=== PATIENT | female | born 1950 | race Caucasian/White ===

== ENCOUNTER 2017-11-03 12:05 | Inpatient (IN) ==
[2017-11-03] MEDS ORDERED: ONDANSETRON 4 MG/2 ML VIAL IV PRN (13:19)
[2017-11-03] MEDS ORDERED: ACETAMINOPHEN 325 MG TABLET PO PRN (13:19)
[2017-11-03 14:09] LABS: Basophils % 0.4 % (0.0-0.8); Hematocrit 36.5 VOL% (35.7-47.0); Hemoglobin 11.7 GM/DL (12.0-16.0); Immature Granulocytes % 0.5 %; Immature Granulocytes Absolute 0.04 #; Lymphocytes % 14.3 % (21.3-54.2); Mean Corpuscular HGB Conc 32.1 GM/DL (32-36); Mean Corpuscular Hemoglobin 31 PG (27-34); Mean Corpuscular Volume 95.3 FL (87-102); Mean Platelet Volume 10.9 FL (9.6-12.0); Monocytes # 0.6 10*3/uL (0.11-0.8); Monocytes % 8.8 % (1.7-12.7); Neutrophils # 5.5 10*3/uL (1.4-7.4); Platelet Count 301 T/CUMM (130-400); Red Blood Count 3.83 MC/CUMM (3.8-5.5); Red Cell Distribution Width 13.1 % (9.3-17.3); White Blood Count 7.3 T/CUMM (4-12)
[2017-11-03] MEDS: ALBUTEROL/IPRATROPIUM 3 ML NEB RESP TX SCH ×3 (14:15→23:59)
[2017-11-03 14:43] LABS: Albumin 3.9 G/DL (3.4-5.0); Bilirubin,Total 0.4 MG/DL (0.2-1.0); Calcium 9.3 MG/DL (8.5-10.1); Osmolality,Calculated 271.1 MOS/KG (273-304); Potassium 4.6 MMOL/L (3.5-5.1); Total Protein 7.6 G/DL (6.4-8.3)
[2017-11-03] MEDS: cefTRIAXone 1,000 MG in SYRINGE 1 EACH IV SCH (14:45)
[2017-11-03] MEDS: methylPREDNISolone SOD SUC 40 MG/1 ML VIAL IV SCH ×2 (14:45→21:31)
[2017-11-03] MEDS ORDERED: METHOCARBAMOL 500 MG TABLET PO PRN (15:41)
[2017-11-03] MEDS: guaiFENesin/DM ER 600-30 MG TABLET PO PRN (17:31)
[2017-11-03] MEDS: ENOXAPARIN 40 MG/0.4 ML SYRINGE SUBCUT SCH (21:34)
[2017-11-04] MEDS: ALBUTEROL/IPRATROPIUM 3 ML NEB RESP TX SCH ×5 (03:21→20:55)
[2017-11-04] MEDS: methylPREDNISolone SOD SUC 40 MG/1 ML VIAL IV SCH ×4 (05:00→20:27)
[2017-11-04] MEDS: LEVOTHYROXINE 25 MCG TABLET PO SCH (07:06)
[2017-11-04] MEDS: guaiFENesin/DM ER 600-30 MG TABLET PO PRN (08:58)
[2017-11-04] MEDS: LOSARTAN 50 MG TABLET PO SCH (08:58)
[2017-11-04] MEDS: PANTOPRAZOLE 40 MG TABLET PO SCH (08:58)
[2017-11-04] MEDS: amLODIPine 5 MG TABLET PO SCH (08:58)
[2017-11-04] MEDS: DULoxetine 30 MG CAPSULE PO SCH (08:58)
[2017-11-04 14:27] LABS: Apearance,Urine CLEAR (Clear); Bacteria,Urine Occasional /HPF (Few); Bilirubin,Urine Negative (Negative); Blood, Urine Negative (Negative); Glucose,Urine (UA) Negative (Negative); Hyaline Casts,Urine 7 /LPF (0-3); Ketones,Urine Negative (Negative); Mucus,Urine Occasional /LPF (Occasional); Nitrite,Urine Negative (Negative); Protein,Urine Negative; RBC,Urine <1 /HPF (0-4); Squamous Epithelial Cell,Urine Occasional /HPF (0-10); Urine Color Yellow (Yellow); Urine Specific Gravity 1.009 (1.001-1.035); Urine Urobilinogen < 2.0 EU/DL (0.2-1.0); WBC,Urine 1 /HPF (0-6)
[2017-11-04] MEDS: cefTRIAXone 1,000 MG in SYRINGE 1 EACH IV SCH (15:44)
[2017-11-04] MEDS: THEOPHYLLINE ER (24 HR) 200 MG CAPSULE PO SCH (16:38)
[2017-11-04] MEDS: ENOXAPARIN 40 MG/0.4 ML SYRINGE SUBCUT SCH (20:27)
[2017-11-05] MEDS: ALBUTEROL/IPRATROPIUM 3 ML NEB RESP TX SCH ×7 (01:13→23:19)
[2017-11-05] MEDS: methylPREDNISolone SOD SUC 40 MG/1 ML VIAL IV SCH ×4 (04:12→20:49)
[2017-11-05] MEDS: LEVOTHYROXINE 25 MCG TABLET PO SCH (06:35)
[2017-11-05] MEDS: LOSARTAN 50 MG TABLET PO SCH (09:47)
[2017-11-05] MEDS: DULoxetine 30 MG CAPSULE PO SCH (09:47)
[2017-11-05] MEDS: amLODIPine 5 MG TABLET PO SCH (09:47)
[2017-11-05] MEDS: THEOPHYLLINE ER (24 HR) 200 MG CAPSULE PO SCH ×2 (09:47→16:57)
[2017-11-05] MEDS: PANTOPRAZOLE 40 MG TABLET PO SCH (09:48)
[2017-11-05] MEDS: cefTRIAXone 1,000 MG in SYRINGE 1 EACH IV SCH (09:53)
[2017-11-05] MEDS: ENOXAPARIN 40 MG/0.4 ML SYRINGE SUBCUT SCH (20:52)
[2017-11-06 03:12] LABS: Basophils % 0.2 % (0.0-0.8); Hematocrit 36.1 VOL% (35.7-47.0); Hemoglobin 11.5 GM/DL (12.0-16.0); Immature Granulocytes % 3.4 %; Immature Granulocytes Absolute 0.55 #; Lymphocytes # 1.8 10*3/uL (1.4-4.0); Lymphocytes % 11.3 % (21.3-54.2); Mean Corpuscular HGB Conc 31.9 GM/DL (32-36); Mean Corpuscular Hemoglobin 31 PG (27-34); Mean Platelet Volume 11.1 FL (9.6-12.0); Monocytes # 0.8 10*3/uL (0.11-0.8); Monocytes % 4.7 % (1.7-12.7); NRBC # 0.02 10*3/uL; Neutrophils % 80.4 % (38.7-73.9); Platelet Count 376 T/CUMM (130-400); Red Blood Count 3.76 MC/CUMM (3.8-5.5); Red Cell Distribution Width 13.6 % (9.3-17.3); White Blood Count 16.2 T/CUMM (4-12)
[2017-11-06] MEDS: methylPREDNISolone SOD SUC 40 MG/1 ML VIAL IV SCH ×4 (03:17→21:44)
[2017-11-06] MEDS: ALBUTEROL/IPRATROPIUM 3 ML NEB RESP TX SCH ×5 (03:20→20:10)
[2017-11-06 03:37] LABS: Calcium 10.1 MG/DL (8.5-10.1); Osmolality,Calculated 283.5 MOS/KG (273-304); Potassium 4.8 MMOL/L (3.5-5.1)
[2017-11-06 05:12] LABS: Band Neutrophils 3 % (0-10); Lymphocytes 13 % (20-55); Promyelocytes 1 %; Segmented Neutrophils 80 % (50-85)
[2017-11-06 05:13] LABS: Giant Platelets Few; Platelet Estimate Normal
[2017-11-06 05:14] LABS: Total Cells Counted 100
[2017-11-06] MEDS: LEVOTHYROXINE 25 MCG TABLET PO SCH (06:12)
[2017-11-06] MEDS: THEOPHYLLINE ER (24 HR) 200 MG CAPSULE PO SCH ×2 (09:13→17:19)
[2017-11-06] MEDS: DULoxetine 30 MG CAPSULE PO SCH (09:14)
[2017-11-06] MEDS: LOSARTAN 50 MG TABLET PO SCH (09:14)
[2017-11-06] MEDS: PANTOPRAZOLE 40 MG TABLET PO SCH (09:15)
[2017-11-06] MEDS: amLODIPine 5 MG TABLET PO SCH (09:15)
[2017-11-06] MEDS: DOCUSATE SODIUM 100 MG CAPSULE PO PRN (09:17)
[2017-11-06] MEDS: cefTRIAXone 1,000 MG in SYRINGE 1 EACH IV SCH (09:18)
[2017-11-06] MEDS: ENOXAPARIN 40 MG/0.4 ML SYRINGE SUBCUT SCH (21:43)
[2017-11-06] MEDS: guaiFENesin/DM ER 600-30 MG TABLET PO PRN (21:51)
[2017-11-07] MEDS: ALBUTEROL/IPRATROPIUM 3 ML NEB RESP TX SCH ×6 (00:12→20:06)
[2017-11-07] MEDS: methylPREDNISolone SOD SUC 40 MG/1 ML VIAL IV SCH ×4 (04:12→22:10)
[2017-11-07] MEDS: LEVOTHYROXINE 25 MCG TABLET PO SCH (06:24)
[2017-11-07] MEDS: LOSARTAN 50 MG TABLET PO SCH (09:53)
[2017-11-07] MEDS: THEOPHYLLINE ER (24 HR) 200 MG CAPSULE PO SCH ×2 (09:53→17:15)
[2017-11-07] MEDS: DULoxetine 30 MG CAPSULE PO SCH (09:53)
[2017-11-07] MEDS: amLODIPine 5 MG TABLET PO SCH (09:54)
[2017-11-07] MEDS: cefTRIAXone 1,000 MG in SYRINGE 1 EACH IV SCH (09:55)
[2017-11-07] MEDS: PANTOPRAZOLE 40 MG TABLET PO SCH (09:55)
[2017-11-07] MEDS: LACTULOSE 20 GM/30 ML UDCUP PO PRN (14:53)
[2017-11-07] MEDS: ENOXAPARIN 40 MG/0.4 ML SYRINGE SUBCUT SCH (22:08)
[2017-11-08] MEDS: ALBUTEROL/IPRATROPIUM 3 ML NEB RESP TX SCH ×6 (00:17→20:18)
[2017-11-08] MEDS: methylPREDNISolone SOD SUC 40 MG/1 ML VIAL IV SCH ×4 (03:51→21:55)
[2017-11-08] MEDS: LEVOTHYROXINE 25 MCG TABLET PO SCH (06:10)
[2017-11-08] MEDS: THEOPHYLLINE ER (24 HR) 200 MG CAPSULE PO SCH ×2 (08:59→17:07)
[2017-11-08] MEDS: LOSARTAN 50 MG TABLET PO SCH (09:01)
[2017-11-08] MEDS: DULoxetine 30 MG CAPSULE PO SCH (09:01)
[2017-11-08] MEDS: PANTOPRAZOLE 40 MG TABLET PO SCH (09:02)
[2017-11-08] MEDS: guaiFENesin/DM ER 600-30 MG TABLET PO PRN (09:02)
[2017-11-08] MEDS: amLODIPine 5 MG TABLET PO SCH (09:02)
[2017-11-08] MEDS: cefTRIAXone 1,000 MG in SYRINGE 1 EACH IV SCH (09:03)
[2017-11-08] MEDS: LACTULOSE 20 GM/30 ML UDCUP PO PRN ×2 (09:08→17:07)
[2017-11-08] MEDS: DOCUSATE SODIUM 100 MG CAPSULE PO PRN (17:07)
[2017-11-08] MEDS: ENOXAPARIN 40 MG/0.4 ML SYRINGE SUBCUT SCH (22:16)
[2017-11-09] MEDS: ALBUTEROL/IPRATROPIUM 3 ML NEB RESP TX SCH ×7 (00:35→23:23)
[2017-11-09] MEDS: methylPREDNISolone SOD SUC 40 MG/1 ML VIAL IV SCH ×4 (03:58→21:19)
[2017-11-09 04:26] LABS: Basophils # 0.1 10*3/uL (0.0-0.2); Basophils % 0.6 % (0.0-0.8); Hematocrit 32.5 VOL% (35.7-47.0); Hemoglobin 10.4 GM/DL (12.0-16.0); Immature Granulocytes % 9.1 %; Immature Granulocytes Absolute 1.44 #; Lymphocytes # 1.6 10*3/uL (1.4-4.0); Lymphocytes % 10.1 % (21.3-54.2); Mean Corpuscular Hemoglobin 31 PG (27-34); Mean Corpuscular Volume 95.3 FL (87-102); Mean Platelet Volume 11.3 FL (9.6-12.0); NRBC # 0.16 10*3/uL; Neutrophils # 11.7 10*3/uL (1.4-7.4); Neutrophils % 74.2 % (38.7-73.9); Platelet Count 313 T/CUMM (130-400); Red Blood Count 3.41 MC/CUMM (3.8-5.5); White Blood Count 15.8 T/CUMM (4-12)
[2017-11-09 04:47] LABS: Band Neutrophils 1 % (0-10); Hypochromasia 1+; Lymphocytes 12 % (20-55); Metamyelocytes 3 %; Microcytosis 1+; Nucleated Red Blood Cells 2 (0-5); Segmented Neutrophils 81 % (50-85); Total Cells Counted 100
[2017-11-09 04:48] LABS: Platelet Estimate Normal
[2017-11-09 04:51] LABS: Calcium 8.7 MG/DL (8.5-10.1); Osmolality,Calculated 288.3 MOS/KG (273-304); Potassium 3.9 MMOL/L (3.5-5.1)
[2017-11-09] MEDS: LEVOTHYROXINE 25 MCG TABLET PO SCH (06:14)
[2017-11-09] MEDS ORDERED: MEPERIDINE 50 MG/1 ML VIAL IM ONE (08:00)
[2017-11-09] MEDS ORDERED: PROMETHAZINE 25 MG/1 ML VIAL IM ONE (08:00)
[2017-11-09] MEDS ORDERED: LIDOCAINE 2% 20 ML VIAL RESP TX ONE (08:30)
[2017-11-09] MEDS ORDERED: LIDOCAINE 2% VISCOUS 100 ML BOTTLE SWISH/SPIT ONE (08:30)
[2017-11-09] MEDS ORDERED: LIDOCAINE 1% 20 ML VIAL MISC INJ ONE (08:30)
[2017-11-09] MEDS ORDERED: MIDAZOLAM 2 MG/2 ML VIAL IV ONE (08:30)
[2017-11-09] MEDS ORDERED: MIDAZOLAM 2 MG/2 ML VIAL ONE (09:25)
[2017-11-09] MEDS ORDERED: PHENOL 1.4% THROAT SPRAY 177 ML BOTTLE PO PRN (09:44)
[2017-11-09] MEDS: cefTRIAXone 1,000 MG in SYRINGE 1 EACH IV SCH (10:55)
[2017-11-09] MEDS: guaiFENesin/DM ER 600-30 MG TABLET PO PRN (10:56)
[2017-11-09] MEDS: PANTOPRAZOLE 40 MG TABLET PO SCH (10:56)
[2017-11-09] MEDS: amLODIPine 5 MG TABLET PO SCH (10:56)
[2017-11-09] MEDS: THEOPHYLLINE ER (24 HR) 200 MG CAPSULE PO SCH ×2 (10:56→16:07)
[2017-11-09] MEDS: DOCUSATE SODIUM 100 MG CAPSULE PO PRN (10:56)
[2017-11-09] MEDS: DULoxetine 30 MG CAPSULE PO SCH (10:56)
[2017-11-09] MEDS: LOSARTAN 50 MG TABLET PO SCH (10:56)
[2017-11-09] MEDS: ENOXAPARIN 40 MG/0.4 ML SYRINGE SUBCUT SCH (21:31)
[2017-11-10] MEDS: ALBUTEROL/IPRATROPIUM 3 ML NEB RESP TX SCH ×3 (03:08→10:30)
[2017-11-10] MEDS: methylPREDNISolone SOD SUC 40 MG/1 ML VIAL IV SCH ×3 (03:14→09:34)
[2017-11-10] MEDS: LEVOTHYROXINE 25 MCG TABLET PO SCH (06:10)
[2017-11-10 08:02] VITALS: BP 142/73
[2017-11-10] MEDS: amLODIPine 5 MG TABLET PO SCH (09:34)
[2017-11-10] MEDS: DOCUSATE SODIUM 100 MG CAPSULE PO PRN (09:34)
[2017-11-10] MEDS: THEOPHYLLINE ER (24 HR) 200 MG CAPSULE PO SCH (09:34)
[2017-11-10] MEDS: LOSARTAN 50 MG TABLET PO SCH (09:34)
[2017-11-10] MEDS: PANTOPRAZOLE 40 MG TABLET PO SCH (09:34)
[2017-11-10] MEDS: DULoxetine 30 MG CAPSULE PO SCH (09:34)
[2017-11-10] MEDS: cefTRIAXone 1,000 MG in SYRINGE 1 EACH IV SCH (09:34)
== END 2017-11-10 11:54 | disposition home or self-care (01) | DRG 192 ==
LOC: N.2E 12:21
PROVIDERS: ADMIT Internal Medicine Pulmonary Disease; ATTEND Internal Medicine Pulmonary Disease